=== PATIENT | female | born 1965 | race Caucasian/White ===

== ENCOUNTER 2019-08-24 23:16 | Emergency (ER) | payer OTHER ==
[~2019-08-24] VITALS: Ht 162.6 cm; Wt 115.7 kg
[~2019-08-24 23:16] MED LIST: CELEXA 10 MG TA10 M1 PO; DILAUDID 2 MG TA2 MG PO; FLEXERIL PO; GLUCOPHAGE500 MG PO; NAPROXEN; PRAVASTATIN SOD20 MG PO; SYNTHROID25 MCG PO; SYNTHROID88 MCG PO; ZANAFLEX4 M1 PO; ZESTRIL10 MG PO
[2019-08-24 23:30] LABS: ABSOLUTE BASOPHILS 0.1 thou/uL (0.0-0.2); ABSOLUTE EOSINOPHILS 0.1 thou/uL (0.0-0.7); ABSOLUTE LYMPHOCYTES 3.2 thou/uL (0.8-5.3); ABSOLUTE MONOCYTES 0.9 thou/uL (0.0-1.2); ABSOLUTE NEUTROPHILS 6.8 thou/uL (1.6-8.1); BASOPHILS 0.5 %; EOSINOPHILS 0.8 %; HEMATOCRIT 49.4 % (37.0-47.0); HEMOGLOBIN 16.9 gm/dL (12.0-15.0); LYMPHOCYTES 29.2 %; MCHC 34.2 g/dL (28.0-37.0); MCV 81.9 fL (80.0-100.0); MONOCYTES 7.8 %; MPV 8.4 fl. (7.2-11.1); NUCLEATED RBCS 0 /100WBC; PLATELET COUNT* 189 thou/uL (150-400); POLYS 61.7 %; RBC 6.04 mil/uL (4.20-5.00); RDW-CV 13.9 % (10.5-14.5)
[2019-08-24 23:40] LABS: ANION GAP 12 mmol/L (7-16); BUN 23 mg/dL (7-18); CALCIUM 9.3 mg/dL (8.5-10.1); CHLORIDE 101 mmol/L (98-107); CO2 26 mmol/L (21-32); CREATININE 0.9 mg/dL (0.6-1.3); GLUCOSE 127 mg/dL (70-99); POTASSIUM 3.6 mmol/L (3.5-5.1); PROTIME 10.6 Seconds (9.20-11.50); SODIUM 139 mmol/L (136-145)
[2019-08-24 23:44] LABS: APTT 24.3 Seconds (25.0-31.3)
[2019-08-24 23:52] LABS: ALBUMIN 4.7 g/dL (3.4-5.0); ALKALINE PHOSPHATASE 161 U/L (46-116); CK-MB MASS 2.5 ng/mL (<0.5-3.6); LIPASE 85 U/L (73-393); MAGNESIUM 1.8 mg/dL (1.8-2.4); NT-PRO BRAIN NAT PEPTIDE 20 pg/mL (<300); SGOT 19 U/L (15-37); SGPT 44 U/L (30-65); TOTAL BILIRUBIN 0.8 mg/dL (<0.1-1.0); TROPONIN-I LEVEL <0.06 ng/mL (<0.06)
[2019-08-25 02:10] VITALS: BP 146/85
--- NOTE | 2019-08-25 16:15 | EKG ---
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
== END 2019-08-25 02:19 | disposition home or self-care (01) ==
LOC: M.ERS 23:16
PROVIDERS: Family Medicine
DX: R07.89 Other chest pain (principal); I10 Essential (primary) hypertension; E11.9 Type 2 diabetes mellitus without complications; Z90.49 Acquired absence of other specified parts of digestive tract; E03.9 Hypothyroidism, unspecified; Z90.710 Acquired absence of both cervix and uterus; Z88.5 Allergy status to narcotic agent